=== PATIENT | female | born 1990 | race Caucasian/White ===

== ENCOUNTER 2018-06-27 00:07 | Inpatient (IN) | payer BC ==
[2018-06-27] MEDS ORDERED: Methylergonovine 0.2 MG/1 ML Amp IM PRN (00:53)
[2018-06-27] MEDS ORDERED: Carboprost Tromethamine 250 MCG/1 ML Amp IM PRN (00:53)
[2018-06-27] MEDS ORDERED: Sodium Chloride 0.9% 10 ML Syringe FLUSH PRN (00:53)
[2018-06-27] MEDS ORDERED: Lactated Ringers 500 ML IV ONE (00:53)
[2018-06-27] MEDS ORDERED: Acetaminophen 325 MG Tab PO PRN (00:53)
[2018-06-27] MEDS ORDERED: Misoprostol 400 MCG (4 X 100 MCG TAB) RECTAL PRN (00:53)
[2018-06-27] MEDS ORDERED: Ondansetron 4 MG/2 ML SDV IV PRN (00:53)
[2018-06-27] MEDS ORDERED: Lidocaine 1% 30 ML SDV INJECT PRN (00:53)
[2018-06-27] MEDS ORDERED: Tranexamic Acid 1,000 MG in Sodium Chloride 0.9% 100 ML IV PRN (00:53)
[2018-06-27] MEDS ORDERED: Oxytocin/Normal Saline 30 UNIT/500 ML BAG IV SCH (01:00)
[2018-06-27] MEDS: Misoprostol 25 MCG (1/4 of 100 MCG) Tab VAG PRN ×2 (01:24→05:30)
[2018-06-27] MEDS: Labetalol 100 MG Tab PO SCH ×3 (08:23→21:51)
--- NOTE | 2018-06-27 10:54 | HP ---
CHIEF COMPLAINT: Induction of labor at 37 weeks and 0 days. HISTORY OF PRESENT ILLNESS: The patient is a 28-year-old 2 para 1-0-0- 1, currently at 37 and 0/7 weeks gestation, who presents to the hospital early this morning for induction of labor. Her problem list includes chronic hypertension, threatened in first trimester, anemia of , nausea and vomiting, headaches, anxiety, and PPROM evaluation at 30 weeks and 6 days to 32 weeks and 2 days gestation, and was ruled out. Throughout the course of , she was taking Effexor, which was later switched to Prozac and was subsequently discontinued. Prior to , she was taking atenolol and losartan. These were discontinued once was confirmed. She began taking nifedipine at 4 weeks gestation and continued this medication until 32 weeks gestation. At 29 weeks gestation, labetalol was initiated. It was increased to 200 mg b.i.d. at 35 and 3 weeks. At 36 and 4 weeks, it was increased to 200 mg t.i.d. On presentation, she denies leakage of fluid, vaginal bleeding, or contractions. movements are active. She has no concerns at this time. HISTORY: Delivered on 03/13/2016, a 37 and 0 days gestational male infant via spontaneous vaginal delivery, named Jose Snyder. His weight was 3544 g with epidural anesthesia, 18 hours of labor, delivered in [place], [place]. Additional labor complications included chronic hypertension. LABORATORY DATA: Maternal blood type is O positive. Rubella immune. Syphilis non-reactive, hepatitis B non-reactive, HIV negative, gonorrhea and chlamydia negative. Thyroid testing normal at 3.75. Wet prep negative. Glucose tolerance test of 130 mg/dL. Group B strep negative. PAST MEDICAL HISTORY: 1. Abnormal Pap smear of cervix with colposcopy x2. Last colposcopy with Dr. George, all was okay on that exam. This was done in 09/2015. 2. Anemia. Started on ferrous sulfate 325 mg daily. 3. Headaches. 4. Hypertension. 5. Irregular menses. Menarche at age 16 or 17, occurring every 1 to 3 months with flow of 2 to 7 days. 6. Type O positive blood. PAST SURGICAL HISTORY: No known past surgical history. FAMILY HISTORY: 1. Hypertension, onset later than age 30 in mother. 2. Heart disease in father. Father at age 39 of myocardial infarction. 3. Diabetes in father. 4. Hypertension in father. 5. Heart disease in maternal grandmother, maternal grandfather, paternal grandmother, and paternal grandfather. 6. Diabetes in maternal grandfather and paternal grandfather. 7. Hypertension in paternal grandmother. 8. COPD in paternal grandmother, grandmother was a former smoker. SOCIAL HISTORY: The patient lives in [place] with her significant other and son, Jose. She works at [employer], doing clerical work. She wears seatbelts. Father of the baby is named Jamshid. This is their second child together. Jamshid is healthy as far as she knows. He has a family history of diabetes and celiac disease. No animals in the home. MEDICATIONS: Current medications prior to admission: 1. Labetalol 100 mg tablets. 2. Ondansetron 8 mg tablets. Medications taken during with exposure to baby includin. Tylenol. 2. Unisom. 3. Zithromax. 4. Zofran. 5. Iron. 6. Pnv. 7. Effexor. 8. Prozac. 9. Atenolol. 10.Losartan. ALLERGIES: No known allergies. REVIEW OF SYSTEMS: As listed under the HPI, otherwise unremarkable. No shortness of breath, no chest pain, headaches, blurry vision, fever, chills, nausea, vomiting, diarrhea, constipation, new noticed rashes, dysuria, or other medical problems. PHYSICAL EXAMINATION: Vital Signs: Temperature of 36.6 degree Celsius, blood pressure of 146/73, heart rate 84, and respiration rate of 16. General: Resting comfortably in bed. HEENT: Grossly unremarkable. Heart: Regular rate and rhythm. Lungs: Clear to auscultation bilaterally. Abdomen: Gravid, heart tone tracing at 120 beats per minute. Accelerations noted. No consistent contractions at this time. Pelvis: Cervical exam per Dr. Aviles is 3 cm dilated, 50% effaced, bag of water intact. Extremities: No edema bilaterally. No erythema or tenderness noted. Neurologic: Appropriate. ASSESSMENT: 1. 2, para 1-0-0-1. 2. 37 and 0/7 weeks gestation. 3. History of chronic hypertension 4. Threatened in first trimester 5. Anemia of . 6. Headaches 7. Anxiety 8. premature rupture of the membranes rule at 30 and 6 to 32 and 2 weeks gestation. 9. Blood type O positive, rubella immune, and group B strep negative. PLAN: The patient was started on Cytotec at 1:25 a.m. The patient will receive at intrathecal for anesthesia if desired when needed. Anticipate possible rupture of membranes after or spontaneous rupture of membranes as the labor progresses. Anticipating vaginal delivery and we will monitor and maintain just the plans when and if it becomes necessary. The patient was seen today by myself and Dr. Karlene Aviles. Assessment and plan are under the advisement of Dr. Karlene Aviles. [facility] /[id number] Patient seen and examined. Agree with note as described on my behalf by Kimberly Stiles, MS3. -board turner 07/01/18 [id number] MTDRonna
[2018-06-27] MEDS: Lactated Ringers 1,000 ML IV SCH ×2 (11:18→14:28)
[2018-06-27] MEDS ORDERED: EPINEPHrine 1 MG/ML SDV ONE (14:15)
[2018-06-27] MEDS ORDERED: fentaNYL 100 MCG/2 ML SDV ONE (14:15)
[2018-06-27] MEDS ORDERED: Metoclopramide 10 MG/2 ML SDV IVPUSH ONE (15:38)
--- NOTE | 2018-06-27 16:32 | PCM.PRNOTE ---
- Free Text/Narrative Note: Requested to provide analgesia to full term patient in severe pain. Upon entering the room, patient is sitting on edge of bed complaining of severe abdominal/pelvic pain and discomfort. Procedure was discussed with patient including adverse outcomes and expectations. Pt consented to analgesia, SAB/ IT. Pt placed into a proper sitting position. Landmarks for SAB/IT were identified and marked. Hands were washed and appropriate PPE was applied. Back was prepped with betadine x3. A sterile, transparent, fenestrated drape was applied. Excess betadine was removed. Using 3 mL of a 1% lidocaine solution , a skin wheel was placed at the L2/L3 interspace. A 24 ga (4 inch) Pencan spinal needle was inserted until positive for CSF. Negative for heme or paresthesias. Injected fentanyl 30 mcg, sufentanil 25 mcg, and 7.5 mg of a 0.75 % bupivacaine solution with an epi wash. Pt was placed left lateral position for approximately 20 minutes. There were zero complications or adverse outcomes. Will continue to monitor. Procedure Date & Time: 06/27/18 [id number]
[2018-06-27] MEDS ORDERED: Benzocaine/Menthol 20%-0.5% Spray 56 GM Canister TOP PRN (18:25)
[2018-06-27] MEDS: Docusate Sodium 100 MG Cap PO PRN (21:51)
[2018-06-27] MEDS: Ibuprofen 800 MG Tab PO PRN (21:52)
[2018-06-28] MEDS: Ibuprofen 800 MG Tab PO PRN ×2 (06:09→14:16)
[2018-06-28] MEDS: Docusate Sodium 100 MG Cap PO PRN (08:55)
--- NOTE | 2018-06-28 09:03 | PCM.PN ---
- General Info Date of Service: 06/28/18 Admission Dx/Problem (Free Text): Uneventful normal spontaneous vaginal delivery yesterday at 1607. Today Christelle is doing well. She has a little bit of crampy pain, but nothing too bad, much better than yesterday. A small amount of bleeding. Planning on . Baby is in nursery for TTN, so Christelle is currently pumping. Subjective Update: Christelle has been doing [id number]. Functional Status: Reports: Pain Controlled, Tolerating Diet, Ambulating, Urinating - Review of Systems General: Reports: No Symptoms Pulmonary: Reports: No Symptoms Cardiovascular: Reports: No Symptoms Gastrointestinal: Reports: Other (some mild cramping ) Genitourinary: Reports: No Symptoms - Patient Data Vitals - Most Recent: Last Vital Signs Temp 99.2 F 06/28/18 08:55 Pulse 77 06/28/18 08:55 Resp 18 06/28/18 08:55 BP 113/62 06/28/18 08:55 Pulse Ox 98 06/28/18 08:55 Weight - Most Recent: 168 lb I&O - Last 24 Hours: Intake & Output 06/27/18 06/28/18 06/28/18 22:59 06:59 14:59 Output Total 1000 Balance -1000 Med Orders - Current: Current Medications Acetaminophen (Tylenol) 650 mg PO Q4H PRN PRN Reason: Pain (Mild 1-3) and fever Benzocaine/Menthol (Dermoplast Pain Relief [place]) 1 gm TOP ASDIRECTED PRN PRN Reason: Perineal Comfort Measure Last Admin: 06/27/18 21:51 Dose: 1 spray Docusate Sodium (Colace) 100 mg PO BID PRN PRN Reason: Constipation Last Admin: 06/28/18 08:55 Dose: 100 mg Ibuprofen (Motrin) 800 mg PO Q8H PRN PRN Reason: Pain Last Admin: 06/28/18 06:09 Dose: 800 mg Labetalol HCl (Normodyne) 200 mg PO TID FLORES Last Admin: 06/27/18 21:51 Dose: 200 mg Misoprostol (Cytotec) 25 mcg VAG Q4H PRN PRN Reason: cervical ripening Last Admin: 06/27/18 05:30 Dose: 25 mcg Sodium Chloride (Saline Flush) 10 ml FLUSH ASDIRECTED PRN PRN Reason: Keep Vein Open Discontinued Medications Carboprost Tromethamine (Hemabate Ds) 250 mcg IM ASDIRECTED PRN PRN Reason: HEMORRHAGE Epinephrine HCl (Adrenalin) Confirm Administered Dose 1 mg .ROUTE .STK-MED ONE Stop: 06/27/18 14:16 Last Admin: 06/27/18 14:38 Dose: Not Given Fentanyl (Sublimaze) Confirm Administered Dose 100 mcg .ROUTE .STK-MED ONE Stop: 06/27/18 14:16 Last Admin: 06/27/18 14:38 Dose: Not Given Lactated Ringer's (Ringers, Lactated) 500 mls @ 999 mls/hr IV .BOLUS ONE Stop: 06/27/18 01:23 Lactated Ringer's (Ringers, Lactated) 1,000 mls @ 125 mls/hr IV ASDIRECTED FLORES Last Admin: 06/27/18 14:28 Dose: 125 mls/hr Oxytocin/Sodium Chloride (Pitocin In Ns 30 Unit/500 Ml) 30 unit in 500 mls @ 2 mls/hr IV TITRATE FLORES; Protocol Last Titration: 06/27/18 18:47 Dose: Infused Tranexamic Acid 1,000 mg/ (Sodium Chloride) 110 mls @ 660 mls/hr IV ONETIME PRN PRN Reason: Bleeding Lidocaine HCl (Xylocaine-Mpf 1%) 30 ml INJECT ASDIRECTED PRN PRN Reason: Perineal Repair Methylergonovine Maleate (Methergine) 0.2 mg IM ASDIRECTED PRN PRN Reason: Hemorrhage Metoclopramide HCl (Reglan) 10 mg IVPUSH ONETIME ONE Stop: 06/27/18 15:39 Last Admin: 06/27/18 15:46 Dose: 10 mg Misoprostol (Cytotec) 800 mcg RECTAL ASDIRECTED PRN PRN Reason: Hemorrhage Ondansetron HCl (Zofran) 4 mg IV Q4H PRN PRN Reason: Nausea/Vomiting Last Admin: 06/27/18 14:15 Dose: 4 mg Sufentanil Citrate (Sufenta) Confirm Administered Dose 50 mcg .ROUTE .STK-MED ONE Stop: 06/27/18 14:17 Last Admin: 06/27/18 14:38 Dose: Not Given - Exam General: Alert, Oriented, Cooperative, No Acute Distress Lungs: Clear to Auscultation, Normal Respiratory Effort Cardiovascular: Regular Rate, Regular Rhythm, No Murmurs GI/Abdominal Exam: Soft, Non-Tender, No Distention (Female) Exam: Other (uterus is felt 1-2 cm below the umbilicus ) Extremities: No Pedal Edema Skin: Warm, Dry, Rash (thrushy area on left groin ), Other Psy/Mental Status: Alert, Normal Affect, Normal Mood - Problem List Review Problem List Initiated/Reviewed/Updated: Yes - Assessment Assessment:: Christelle is a 28 year old female with a history of chronic HTN treated with labetolol TID, GBS negative; blood type O+; SROM; who gave to a 6 pound baby girl at 1607 on 06/27/18. Baby girl was born at 37 weeks and 4 days. Delivery was uncomplicated. Baby is now in the nursery for TTN. Christelle is doing well. - Plan Plan:: Continue her labetalol TID Continue pumping Continue [id number] Continue alternating between Motrin and Tylenol for pain management Order Clotrimazole for suspected giselle infection on left groin Hospital stay will depend on status of baby, at least 24 hours. Rahat Vázquez, MS3
[2018-06-28] MEDS ORDERED: Clotrimazole 1% Crm 30 GM Tube TOP SCH (10:45)
[2018-06-28] MEDS: Labetalol 100 MG Tab PO SCH ×3 (10:58→19:54)
--- NOTE | 2018-06-28 14:33 | PN ---
DATE: 06/28/2018 LOCATION: [facility]. SUBJECTIVE: The patient is day #1 from a vaginal delivery. She does have chronic hypertension and is on labetalol 200 mg t.i.d. Her lochia has been normal. Her is also being treated for some transient tachypnea. Her only complaint is she does have a flaky rash near the nipple. PHYSICAL EXAMINATION: Vital Signs: She is afebrile. Heart rate 75 to 85, blood pressure 113 to 137 over 62 to 68, respiratory rate 16, and O2 saturation 99%. Pelvic: The patient's fundus is firm. Extremities: No tenderness. No edema. LABORATORY DATA: Blood type is O positive. She is rubella immune. ASSESSMENT AND PLAN: day #1, status post vaginal delivery. The patient's blood pressures remain on the low normal side. Therefore, I do want to decrease her labetalol to 100 mg t.i.d. I also gave her Lotrimin b.i.d. for the rash, and we will continue care. [facility] /[id number] MTDD
[2018-06-28] MEDS ORDERED: fentaNYL 100 MCG/2 ML SDV ITHECAL ONE (16:59)
[2018-06-28] MEDS ORDERED: EPINEPHrine 1 MG/ML SDV ONE (16:59)
--- NOTE | 2018-06-29 00:27 | DEL ---
DATE: 06/27/2018 LOCATION: [facility]. PREDELIVERY DIAGNOSIS: Intrauterine at 37 and 4/7 weeks gestational age with chronic hypertension. The patient has also received betamethasone previously when she was being ruled out for premature rupture of membranes. DELIVERY: A normal spontaneous vaginal delivery. FINDINGS: A viable with scores 8 and 9. Baby weighed 2745 g. The placenta was delivered intact with a small midline tear. ESTIMATED BLOOD LOSS: Normal. PROCEDURE IN DETAIL: The patient was brought to Labor and Delivery where she was given 2 doses of Cytotec. Pitocin was briefly started. She then had spontaneous rupture of membranes on her own, received the intrathecal and then progressed to complete. With just a couple of pushes, the 's head was delivered. Shoulder was delivered. The infant was placed on the maternal abdomen. Delayed cord clamping was done. The infant was doing well. scores 8 and 9. Baby weighed 2745 g. The placenta was then delivered intact with some mild traction. The uterus became firm with the 3rd stage Pitocin, and there was a small laceration in the midline. Therefore, a [id number] 3 - 0 Vicryl was placed there. At the end of the procedure, mom and baby were both doing well, and we will continue her on her labetalol. [facility] /[id number] SHANTELLE
== END 2018-06-28 17:00 | disposition home or self-care (01) | DRG 560 ==
LOC: DL.OBCHECK 00:07 → DL.OB 00:08 → OBSVTOIN 16:07 → EDSTATUS 07-03 23:58
PROVIDERS: ADMIT Family Medicine; ATTEND Family Medicine
PROC: 10E0XZZ Delivery of Products of Conception, External Approach (ICD-10-PCS; principal; 2018-06-27)
PROC: 0HQ9XZZ Repair Perineum Skin, External Approach (ICD-10-PCS; principal; 2018-06-27)
PROC: 3E033VJ Introduction of Other Hormone into Peripheral Vein, Percutaneous Approach (ICD-10-PCS; principal; 2018-06-27)
PROC: 3E0R3BZ Introduction of Anesthetic Agent into Spinal Canal, Percutaneous Approach (ICD-10-PCS; principal; 2018-06-27)
DX: O10.92 Unspecified pre-existing hypertension complicating childbirth (principal); Z3A.37 37 weeks gestation of pregnancy; Z37.0 Single live birth; O99.02 Anemia complicating childbirth; D64.9 Anemia, unspecified; O98.82 Other maternal infectious and parasitic diseases complicating childbirth; B37.2 Candidiasis of skin and nail; O99.344 Other mental disorders complicating childbirth; F41.9 Anxiety disorder, unspecified; Z67.40 Type O blood, Rh positive; Z79.899 Other long term (current) drug therapy; O70.9 Perineal laceration during delivery, unspecified
CPT/HCPCS: 36415; 59025; 59409; 82570; 83615; 84156; 84450; 84460; 84520; 84550; 85025; A9270-GY; J0171; J2405; J2590; J2765; J3010; J7120

== ENCOUNTER 2022-02-03 02:37 | Inpatient (IN) | payer BC ==
[2022-02-03] MEDS ORDERED: Acetaminophen 325 MG Tab PO PRN ×3 (09:13→16:08)
[2022-02-03] MEDS ORDERED: Sodium Chloride 0.9% 10 ML Syringe FLUSH PRN ×2 (09:13→16:08)
[2022-02-03] MEDS ORDERED: Misoprostol 400 MCG (4 X 100 MCG TAB) RECTAL PRN ×2 (09:13→16:08)
[2022-02-03] MEDS ORDERED: Misoprostol 50 MCG (1/2 of 100 MCG) Tab VAG PRN (09:13)
[2022-02-03] MEDS ORDERED: Lidocaine 1% 30 ML SDV INJECT PRN (09:13)
[2022-02-03] MEDS ORDERED: Ondansetron 4 MG/2 ML SDV IVPUSH PRN ×2 (09:13→18:52)
[2022-02-03] MEDS ORDERED: Methylergonovine 0.2 MG/1 ML Amp IM PRN (09:13)
[2022-02-03] MEDS ORDERED: Carboprost Tromethamine 250 MCG/1 ML Amp IM PRN ×2 (09:13→16:08)
[2022-02-03] MEDS ORDERED: Tranexamic Acid 1,000 MG in Sodium Chloride 0.9% 100 ML IV PRN ×2 (09:13→16:08)
[2022-02-03] MEDS ORDERED: Oxytocin/Normal Saline 30 UNIT/500 ML BAG IV SCH ×2 (09:15)
[2022-02-03] MEDS ORDERED: Lactated Ringers 1,000 ML IV SCH (09:15)
[2022-02-03] MEDS: Lactated Ringers 1,000 ML IV ONE ×2 (14:50→15:51)
[2022-02-03] MEDS ORDERED: Benzocaine/Menthol 20%-0.5% Spray 78 GM Cannister TOP PRN (16:08)
[2022-02-03] MEDS ORDERED: Docusate Sodium 100 MG Cap PO PRN (16:08)
[2022-02-03] MEDS ORDERED: Ibuprofen 800 MG Tab PO PRN (16:08)
[2022-02-03] MEDS ORDERED: Simethicone 80 MG Tab.Chew PO PRN (16:08)
[2022-02-03] MEDS ORDERED: Witch Hazel Medicated Pads 100/Jar TOP PRN (20:20)
[2022-02-03] MEDS ORDERED: Sodium Chloride 0.9% 10 ML Syringe FLUSH SCH (21:00)
[2022-02-03] MEDS ORDERED: Metoclopramide 10 MG/2 ML SDV IM ONE (21:43)
[2022-02-03] MEDS ORDERED: Morphine PF 1 MG/ML Amp ITHECAL ONE (23:20)
[2022-02-04] MEDS ORDERED: Ferrous Sulfate 325 MG Tab PO SCH (08:00)
[2022-02-04] MEDS ORDERED: Prenatal Multivitamin with Calcium/Folic Acid/Iron Tab PO SCH (09:00)
== END 2022-02-03 23:21 | disposition home or self-care (01) | DRG 560 ==
LOC: DL.OB 07:58 → OBSVTOIN 15:44
PROVIDERS: ADMIT Family Medicine; ATTEND Family Medicine
PROC: 10E0XZZ Delivery of Products of Conception, External Approach (ICD-10-PCS; principal; 2022-02-03)
PROC: 10907ZC Drainage of Amniotic Fluid, Therapeutic from Products of Conception, Via Natural or Artificial Opening (ICD-10-PCS; 2022-02-03)
DX: O10.92 Unspecified pre-existing hypertension complicating childbirth (principal); Z3A.37 37 weeks gestation of pregnancy; Z37.0 Single live birth; O99.02 Anemia complicating childbirth; D64.9 Anemia, unspecified; O99.344 Other mental disorders complicating childbirth; Z20.822 Contact with and (suspected) exposure to COVID-19; F41.9 Anxiety disorder, unspecified; Z86.16 Personal history of COVID-19
CPT/HCPCS: 36415; 59409; 62320; 82570; 84156; 84450; 84460; 84520; 85027; A9270-GY; J2405; J2590; J2765; J7120; U0002